=== PATIENT | female | born 1995 | race African-American/Black ===

== ENCOUNTER 2020-02-09 09:07 | Emergency (ER) | payer MEDICAID, OTHER ==
[~2020-02-09] VITALS: Ht 160 cm; Wt 54.4 kg
[2020-02-09 09:47] LABS: Urine Bacteria NONE SEEN /hpf (None Seen); Urine Blood Negative /uL (Negative); Urine Mucus FEW (None Seen); Urine Specific Gravity 1.024 (1.001-1.035); Urine WBC 2 /hpf (0 - 5)
[2020-02-09 10:19] VITALS: BP 122/70
== END 2020-02-09 12:46 | disposition home or self-care (01) ==
LOC: ER 09:07
DX: O26.891 Other specified pregnancy related conditions, first trimester (principal); R10.30 Lower abdominal pain, unspecified; Z3A.01 Less than 8 weeks gestation of pregnancy
CPT/HCPCS: 36415; 76801; 76817; 81001; 84702